=== PATIENT | male | born 1975 | race Two or more races ===

== ENCOUNTER → 2016-06-03 | Outpatient (CLI) | payer BC, OTHER | LOC: RAD 09:20 | PROVIDERS: ATTEND Family Medicine | DX: Z00.01 Encounter for general adult medical examination with abnormal findings (principal); R94.31 Abnormal electrocardiogram [ECG] [EKG] | CPT/HCPCS: 71020-TC ==

== ENCOUNTER 2016-06-06 08:49 | Outpatient (CLI) | payer BC, OTHER ==
[2016-06-06 10:07] LABS: BASOPHILS % (AUTO) 0.3 % (0.0-2.0); DIFF TOTAL % 100 %; EOSINOPHILS # (AUTO) 0.1 /CMM (0.0-0.7); EOSINOPHILS % (AUTO) 1.6 % (0.0-6.0); HEMATOCRIT 45 % (39-51); HEMOGLOBIN 13.9 g/dL (13.5-17.5); LYMPHOCYTES # (AUTO) 2.4 /CMM (0.8-4.8); LYMPHOCYTES % (AUTO) 40.6 % (20.0-44.0); MEAN CORPUSCULAR HEMOGLOBIN 21 PG (26.0-33.0); MEAN CORPUSCULAR HGB CONC 31 g/dl (31.0-36.0); MEAN CORPUSCULAR VOLUME 67 fL (80-96); MONOCYTES # (AUTO) 0.5 /CMM (0.1-1.30); MONOCYTES % (AUTO) 8.7 % (2.0-12.0); NEUTROPHILS # (AUTO) 2.9 /CMM (1.8-8.9); NEUTROPHILS % (AUTO) 48.8 % (43.0-81.0); PLATELET COUNT (AUTO) 297 /CMM (150-450); RED BLOOD CELL COUNT(AUTO) 6.72 MIL/uL (4.5-6.0)
[2016-06-06 10:20] LABS: ALBUMIN 4.3 g/dL (3.4-5.0); BILIRUBIN,TOTAL 0.6 mg/dL (0.2-1.0); CALCIUM, SERUM 9.5 mg/dL (8.5-10.1); CREATININE 0.9 mg/dL (0.6-1.3); POTASSIUM 3.9 mmol/L (3.5-5.1); TOTAL PROTEIN, SERUM 7.5 g/dL (6.4-8.2)
[2016-06-06 10:26] LABS: THYROID STIMULATING HORMONE 0.645 uIU/mL (0.358-3.74)
[2016-06-06 10:27] LABS: ANISOCYTOSIS 2+; EOSINOPHILS % (MANUAL) 2 % (0-4); LYMPHOCYTES % (MANUAL) 49 % (16-48); MICROCYTOSIS 2+; PLATELET ESTIMATE ADEQUATE
[2016-06-06 10:28] LABS: HYPOCHROMASIA 2+
== END 2016-06-06 23:59 | disposition home or self-care (01) ==
LOC: CARD 08:49
PROVIDERS: ATTEND Family Medicine
DX: Z00.01 Encounter for general adult medical examination with abnormal findings (principal); R94.31 Abnormal electrocardiogram [ECG] [EKG]; I34.0 Nonrheumatic mitral (valve) insufficiency
CPT/HCPCS: 36415; 80053-TC; 80061-TC; 84436-TC; 84443-TC; 85025-TC; 93307-TC

== ENCOUNTER 2016-06-20 08:28 | Outpatient (CLI) | payer BC, OTHER | END 2016-06-20 23:59 | disposition home or self-care (01) | LOC: LAB 08:28 | PROVIDERS: ATTEND Family Medicine | DX: H53.8 Other visual disturbances (principal) | CPT/HCPCS: 36415; 84146 ==

== ENCOUNTER → 2017-06-22 | Outpatient (CLI) | payer BC, OTHER ==
[2017-06-22 09:47] LABS: ALBUMIN 4.4 g/dL (3.4-5.0); APPEARANCE,URINE CLEAR (CLEAR); BILIRUBIN,TOTAL 0.5 mg/dL (0.2-1.0); BILIRUBIN,URINE NEGATIVE (NEGATIVE); BLOOD, URINE TRACE Ery/uL (NEGATIVE); COLOR,URINE YELLOW (YELLOW); KETONES,URINE NEGATIVE (NEGATIVE); LEUKOCYTE ESTERASE ,URINE NEGATIVE (NEGATIVE); NITRITE, URINE NEGATIVE (NEGATIVE); PH,URINE 5.5 (5.0-8.0); POTASSIUM 4.1 mmol/L (3.5-5.1); PROTEIN,URINE NEGATIVE (NEGATIVE); TOTAL PROTEIN, SERUM 8.2 g/dL (6.4-8.2); UGLUCOSE NEGATIVE (NEGATIVE); UROBILINOGEN,URINE 0.2 EU/dL (0.2)
[2017-06-22 09:50] LABS: RBC,URINE 0-2 /HPF (0-2); WBC,URINE NONE SEEN /HPF (0-3)
[2017-06-22 09:51] LABS: BACTERIA,URINE None seen /HPF (None Seen); SQUAMOUS EPITHELIAL CELL,UR Few /HPF (None Seen)
[2017-06-22 09:53] LABS: BASOPHILS % (AUTO) 0.6 % (0.0-2.0); EOSINOPHILS # (AUTO) 0.1 /CMM (0.0-0.7); EOSINOPHILS % (AUTO) 1.1 % (0.0-6.0); HEMATOCRIT 42 % (39-51); HEMOGLOBIN 13.5 g/dL (13.5-17.5); LYMPHOCYTES # (AUTO) 1.9 /CMM (0.8-4.8); LYMPHOCYTES % (AUTO) 32.6 % (20.0-44.0); MEAN CORPUSCULAR HEMOGLOBIN 21 PG (26.0-33.0); MEAN CORPUSCULAR HGB CONC 32 g/dl (31.0-36.0); MEAN CORPUSCULAR VOLUME 67 fL (80-96); MONOCYTES # (AUTO) 0.5 /CMM (0.1-1.30); MONOCYTES % (AUTO) 7.8 % (2.0-12.0); NEUTROPHILS # (AUTO) 3.5 /CMM (1.8-8.9); NEUTROPHILS % (AUTO) 57.9 % (43.0-81.0); PLATELET COUNT (AUTO) 280 /CMM (150-450); RDW COEFFICIENT OF VARIATION 15.3 (11.5-15.0); RED BLOOD CELL COUNT(AUTO) 6.28 MIL/uL (4.5-6.0)
[2017-06-22 09:55] LABS: THYROID STIMULATING HORMONE 0.761 uIU/mL (0.358-3.74)
[2017-06-22 10:11] LABS: EOSINOPHILS % (MANUAL) 2 % (0-4); LYMPHOCYTES % (MANUAL) 49 % (16-48); MONOCYTES % (MANUAL) 3 % (0-11.0); NEUTROPHILS % (MANUAL) 46 (42-76)
[2017-06-23 08:09] LABS: *TESTOSTERONE, SERUM 452 ng/dL (264-916)
[2017-06-24 20:10] LABS: *TESTOSTERONE, FREE (DIRECT) 13.4 pg/mL (6.8-21.5)
== END | disposition home or self-care (01) ==
LOC: LAB 08:49
PROVIDERS: ATTEND Family Medicine
DX: E55.9 Vitamin D deficiency, unspecified (principal); I10 Essential (primary) hypertension; R73.9 Hyperglycemia, unspecified
CPT/HCPCS: 36415; 80053-TC; 80061-TC; 81000-TC; 82306; 84402; 84403; 84439-TC; 84443-TC; 85025-TC

== ENCOUNTER 2017-08-22 09:15 | Outpatient (CLI) | payer BC, OTHER ==
[2017-08-22 09:51] LABS: ALBUMIN 4.4 g/dL (3.4-5.0); BILIRUBIN,DIRECT 0.2 mg/dL (0.0-0.2); BILIRUBIN,TOTAL 0.4 mg/dL (0.2-1.0); TOTAL PROTEIN, SERUM 8.1 g/dL (6.4-8.2)
== END 2017-08-22 23:59 | disposition home or self-care (01) ==
LOC: LAB 09:15
PROVIDERS: ATTEND Family Medicine
DX: R94.5 Abnormal results of liver function studies (principal)
CPT/HCPCS: 36415; 80076-TC; 86706; 86709-TC; 87340

== ENCOUNTER 2017-08-25 08:53 | Outpatient (CLI) | payer BC | END 2017-08-25 23:59 | disposition home or self-care (01) | LOC: US 08:53 | PROVIDERS: ATTEND Family Medicine | DX: R94.5 Abnormal results of liver function studies (principal) | CPT/HCPCS: 76700-TC ==

== ENCOUNTER 2018-05-14 10:30 | Outpatient (CLI) | payer BC ==
[2018-05-14 11:22] LABS: CALCIUM, SERUM 9.4 mg/dL (8.5-10.1); POTASSIUM 4.6 mmol/L (3.5-5.1)
== END 2018-05-14 23:59 | disposition home or self-care (01) ==
LOC: LAB 10:30
PROVIDERS: ATTEND Family Medicine
DX: R73.9 Hyperglycemia, unspecified (principal); E55.9 Vitamin D deficiency, unspecified; I10 Essential (primary) hypertension
CPT/HCPCS: 36415; 80048-TC; 80061-TC; 82306

== ENCOUNTER 2018-10-21 11:02 | Emergency (ER) | payer BC, OTHER ==
[~2018-10-21] VITALS: Ht 167.6 cm; Wt 72.1 kg
--- NOTE | 2018-10-21 11:20 | NUR ---
PATIENT CAME IN C/PO HEADACHE FOR 1 WEEK NOW AND TAKES IBUPROFEN SCHEDULED WITHOUT RELIEF. PER PATIENT SAME THING HAPPENED 2 YEARS AGO. DENIES BLURRY VISION, WEAKNESS, NO HTN, NO SENSITIVITY TO LIGHT, DENIES NAUSEA.
[2018-10-21] MEDS ORDERED: METOCLOPRAMIDE HCL 10 MG/2 ML VIAL ONE (11:45)
[2018-10-21] MEDS ORDERED: diphenhydrAMINE HCL 50 MG/ML VIAL ONE (11:45)
[2018-10-21] MEDS ORDERED: KETOROLAC TROMETHAMINE 15 MG/ML VIAL ONE (11:45)
[2018-10-21] MEDS ORDERED: KETOROLAC TROMETHAMINE INJ 30 MG/ML VIAL IV ONE (12:00)
[2018-10-21] MEDS ORDERED: IV NS 0.9% 1,000 ML BAG IV ONE (12:00)
[2018-10-21] MEDS ORDERED: METOCLOPRAMIDE HCL 10 MG/2 ML VIAL IV ONE (12:00)
[2018-10-21] MEDS ORDERED: diphenhydrAMINE HCL 50 MG/ML VIAL IV ONE (12:00)
--- NOTE | 2018-10-21 12:14 | NUR ---
patient resting comfortably
[2018-10-21 13:30] VITALS: BP 128/77
--- NOTE | 2018-10-21 13:30 | NUR ---
Patient discharged to home in stable condition. Written and verbal after care instructions given. Patient verbalizes understanding of instruction.IV removed. Catheter intact and site benign. Pressure and 4x4 applied to site. No bleeding noted.
== END 2018-10-21 13:34 | disposition home or self-care (01) ==
LOC: ER 11:03
DX: R51 Headache (principal); I10 Essential (primary) hypertension; Z88.1 Allergy status to other antibiotic agents
CPT/HCPCS: 96374; 96375; 99283; J1200; J1885; J2765; J7030

== ENCOUNTER 2018-10-24 08:27 | Outpatient (CLI) | payer BC | END 2018-10-24 23:59 | disposition home or self-care (01) | LOC: CT 08:27 | PROVIDERS: ATTEND Family Medicine | DX: R51 Headache (principal) | CPT/HCPCS: 70450-TC ==

== ENCOUNTER 2019-10-06 01:03 | Emergency (ER) | payer BC, OTHER | END 2019-10-06 01:31 | disposition home or self-care (01) | LOC: ER 01:05 | DX: Z03.818 Encounter for observation for suspected exposure to other biological agents ruled out (principal) | CPT/HCPCS: 99283; U0003 ==

== ENCOUNTER 2019-11-01 03:45 | Emergency (ER) | payer OTHER ==
[~2019-11-01] VITALS: Ht 170.2 cm; Wt 72.6 kg
[2019-11-01 03:48] VITALS: BP 127/89
== END 2019-11-01 04:49 | disposition home or self-care (01) ==
LOC: ER 03:45
DX: Z03.818 Encounter for observation for suspected exposure to other biological agents ruled out (principal); Z82.49 Family history of ischemic heart disease and other diseases of the circulatory system
CPT/HCPCS: 99283; C9803; U0003

== ENCOUNTER 2019-11-08 01:42 | Emergency (ER) | payer OTHER ==
[~2019-11-08] VITALS: Ht 170.2 cm; Wt 72.6 kg
[2019-11-08 01:42] VITALS: BP 137/89
--- NOTE | 2019-11-08 02:12 | NUR ---
COVID TEST SENT TO LAB
== END 2019-11-08 02:18 | disposition home or self-care (01) ==
LOC: ER 01:42
DX: Z11.59 Encounter for screening for other viral diseases (principal); I10 Essential (primary) hypertension
CPT/HCPCS: 99283; C9803; U0003

== ENCOUNTER 2019-11-22 02:56 | Emergency (ER) | payer OTHER ==
[~2019-11-22] VITALS: Ht 170.2 cm; Wt 72.6 kg
[2019-11-22 02:56] VITALS: BP 122/75
--- NOTE | 2019-11-22 03:12 | NUR ---
COVID SWAB SENT TO LAB
== END 2019-11-22 03:45 | disposition home or self-care (01) ==
LOC: ER 02:56
DX: Z03.818 Encounter for observation for suspected exposure to other biological agents ruled out (principal)
CPT/HCPCS: 99283; C9803; U0003

== ENCOUNTER 2019-11-29 04:03 | Emergency (ER) | payer OTHER ==
[~2019-11-29] VITALS: Ht 170.2 cm; Wt 72.6 kg
[2019-11-29 04:06] VITALS: BP 126/64
== END 2019-11-29 04:55 | disposition home or self-care (01) ==
LOC: ER 04:04
DX: Z03.818 Encounter for observation for suspected exposure to other biological agents ruled out (principal); I10 Essential (primary) hypertension
CPT/HCPCS: 99283; C9803; U0003

== ENCOUNTER 2019-12-06 03:25 | Emergency (ER) | payer OTHER ==
[~2019-12-06] VITALS: Ht 170.2 cm; Wt 72.6 kg
[2019-12-06 03:26] VITALS: BP 132/64
--- NOTE | 2019-12-06 03:44 | NUR ---
COVID SWAB SENT TO LAB
--- NOTE | 2019-12-06 21:46 | NUR ---
LAB CALLED REGARDING COVID NEGATIVE RESULT.
== END 2019-12-06 03:46 | disposition home or self-care (01) ==
LOC: ER 03:26
DX: Z11.59 Encounter for screening for other viral diseases (principal); I10 Essential (primary) hypertension
CPT/HCPCS: 99283; C9803; U0003

== ENCOUNTER 2019-12-13 03:34 | Emergency (ER) | payer OTHER ==
[~2019-12-13] VITALS: Ht 170.2 cm; Wt 72.6 kg
[2019-12-13 03:35] VITALS: BP 123/75
--- NOTE | 2019-12-13 03:52 | NUR ---
COVID SWAB SENT TO LAB
== END 2019-12-13 03:53 | disposition home or self-care (01) ==
LOC: ER 03:34
DX: Z03.818 Encounter for observation for suspected exposure to other biological agents ruled out (principal); I10 Essential (primary) hypertension; Z82.49 Family history of ischemic heart disease and other diseases of the circulatory system; Z88.1 Allergy status to other antibiotic agents; Z88.0 Allergy status to penicillin
CPT/HCPCS: 99283; C9803; U0003

== ENCOUNTER 2019-12-20 03:40 | Emergency (ER) | payer OTHER ==
[~2019-12-20] VITALS: Ht 170.2 cm; Wt 72.6 kg
[2019-12-20 03:41] VITALS: BP 131/75
== END 2019-12-20 04:16 | disposition home or self-care (01) ==
LOC: ER 03:42
DX: Z20.828 Contact with and (suspected) exposure to other viral communicable diseases (principal); I10 Essential (primary) hypertension; Z82.49 Family history of ischemic heart disease and other diseases of the circulatory system
CPT/HCPCS: 99283; C9803; U0003

== ENCOUNTER 2020-01-03 02:21 | Emergency (ER) | payer OTHER ==
[~2020-01-03] VITALS: Ht 170.2 cm; Wt 72.6 kg
[2020-01-03 02:24] VITALS: BP 132/62
--- NOTE | 2020-01-03 02:40 | NUR ---
COVID SWAB DONE AND SENT TO LAB
--- NOTE | 2020-01-03 02:46 | NUR ---
Patient discharged to home in stable condition. Written and verbal after care instructions given. Patient verbalizes understanding of instruction.
== END 2020-01-03 02:46 | disposition home or self-care (01) ==
LOC: ER 02:23
DX: Z20.828 Contact with and (suspected) exposure to other viral communicable diseases (principal); I10 Essential (primary) hypertension; Z88.1 Allergy status to other antibiotic agents; Z88.0 Allergy status to penicillin
CPT/HCPCS: 99283; C9803; U0003

== ENCOUNTER 2020-01-10 01:58 | Emergency (ER) | payer OTHER ==
[~2020-01-10] VITALS: Ht 170.2 cm; Wt 72.6 kg
[2020-01-10 02:03] VITALS: BP 131/80
== END 2020-01-10 02:14 | disposition home or self-care (01) ==
LOC: ER 01:59
DX: Z20.828 Contact with and (suspected) exposure to other viral communicable diseases (principal); I10 Essential (primary) hypertension; Z88.1 Allergy status to other antibiotic agents; Z82.49 Family history of ischemic heart disease and other diseases of the circulatory system
CPT/HCPCS: 99283; C9803; U0003

== ENCOUNTER 2020-01-24 02:42 | Emergency (ER) | payer OTHER ==
[~2020-01-24] VITALS: Ht 170.2 cm; Wt 72.6 kg
[2020-01-24 02:42] VITALS: BP 121/75
== END 2020-01-24 02:56 | disposition home or self-care (01) ==
LOC: ER 02:43
DX: Z20.828 Contact with and (suspected) exposure to other viral communicable diseases (principal); Z88.1 Allergy status to other antibiotic agents; Z88.0 Allergy status to penicillin
CPT/HCPCS: 99283; C9803; U0003

== ENCOUNTER 2020-01-27 08:10 | Outpatient (CLI) | payer BC ==
[2020-01-27 10:03] LABS: BASOPHILS % (AUTO) 0.5 % (0.0-2.0); EOSINOPHILS % (AUTO) 0.9 % (0.0-6.0); HEMATOCRIT 41 % (39-51); HEMOGLOBIN 12.8 g/dL (13.5-17.5); LYMPHOCYTES # (AUTO) 1.4 /CMM (0.8-4.8); MEAN CORPUSCULAR HGB CONC 31 g/dl (31.0-36.0); MEAN CORPUSCULAR VOLUME 69 fL (80-96); MONOCYTES # (AUTO) 0.3 /CMM (0.1-1.30); MONOCYTES % (AUTO) 7.5 % (2.0-12.0); NEUTROPHILS # (AUTO) 2.8 /CMM (1.8-8.9); NEUTROPHILS % (AUTO) 60.1 % (43.0-81.0); PLATELET COUNT (AUTO) 265 /CMM (150-450); WHITE BLOOD COUNT (AUTO) 4.6 K/uL (4.3-11.0)
[2020-01-27 10:34] LABS: APPEARANCE,URINE CLEAR (CLEAR); BILIRUBIN,URINE NEGATIVE (NEGATIVE); BLOOD, URINE NEGATIVE Ery/uL (NEGATIVE); COLOR,URINE YELLOW (YELLOW); KETONES,URINE NEGATIVE (NEGATIVE); LEUKOCYTE ESTERASE ,URINE NEGATIVE (NEGATIVE); NITRITE, URINE NEGATIVE (NEGATIVE); PH,URINE 5.5 (5.0-8.0); PROTEIN,URINE NEGATIVE (NEGATIVE); UGLUCOSE NEGATIVE (NEGATIVE); UROBILINOGEN,URINE 0.2 EU/dL (0.2)
[2020-01-27 10:35] LABS: ALBUMIN 4.2 g/dL (3.4-5.0); BILIRUBIN,TOTAL 0.5 mg/dL (0.2-1.0); CALCIUM, SERUM 9.3 mg/dL (8.5-10.1); CREATININE 0.9 mg/dL (0.6-1.3); POTASSIUM 3.9 mmol/L (3.5-5.1); TOTAL PROTEIN, SERUM 7.6 g/dL (6.4-8.2)
[2020-01-27 12:59] LABS: THYROID STIMULATING HORMONE 0.562 uIU/mL (0.358-3.74)
== END 2020-01-27 23:59 | disposition home or self-care (01) ==
LOC: LAB 08:10
PROVIDERS: ATTEND Family Medicine
DX: I10 Essential (primary) hypertension (principal); E55.9 Vitamin D deficiency, unspecified; E78.5 Hyperlipidemia, unspecified; Z79.899 Other long term (current) drug therapy
CPT/HCPCS: 36415; 80053-TC; 80061-TC; 81000-TC; 84439-TC; 84443-TC; 85025-TC

== ENCOUNTER 2020-01-31 02:00 | Emergency (ER) | payer BC, OTHER ==
[~2020-01-31] VITALS: Ht 167.6 cm; Wt 68.0 kg
[2020-01-31 02:02] VITALS: BP 127/76
--- NOTE | 2020-01-31 02:13 | NUR ---
COVID SWAB SENT TO LAB
== END 2020-01-31 02:16 | disposition home or self-care (01) ==
LOC: ER 02:00
DX: Z20.828 Contact with and (suspected) exposure to other viral communicable diseases (principal); Z82.49 Family history of ischemic heart disease and other diseases of the circulatory system; Z88.1 Allergy status to other antibiotic agents; Z88.0 Allergy status to penicillin
CPT/HCPCS: 99283; C9803; U0003

== ENCOUNTER 2020-02-07 01:06 | Emergency (ER) | payer OTHER ==
[~2020-02-07] VITALS: Ht 167.6 cm; Wt 68.0 kg
[2020-02-07 01:08] VITALS: BP 137/62
== END 2020-02-07 02:00 | disposition home or self-care (01) ==
LOC: ER 01:56
DX: Z20.828 Contact with and (suspected) exposure to other viral communicable diseases (principal); I10 Essential (primary) hypertension; Z88.0 Allergy status to penicillin
CPT/HCPCS: 99283; C9803; U0003

== ENCOUNTER 2020-02-13 02:05 | Emergency (ER) | payer OTHER ==
[~2020-02-13] VITALS: Ht 167.6 cm; Wt 68.0 kg
[2020-02-13 02:07] VITALS: BP 132/61
--- NOTE | 2020-02-13 02:19 | NUR ---
UNABLE TO DEPART DUE TO [employer] APPLICATION ERROR.
== END 2020-02-13 07:59 | disposition home or self-care (01) ==
LOC: ER 02:05
DX: Z20.828 Contact with and (suspected) exposure to other viral communicable diseases (principal)
CPT/HCPCS: 99283; C9803; U0003

== ENCOUNTER 2020-02-21 01:33 | Emergency (ER) | payer OTHER ==
[~2020-02-21] VITALS: Ht 170.2 cm; Wt 73.5 kg
[2020-02-21 01:45] VITALS: BP 142/77
== END 2020-02-21 01:54 | disposition home or self-care (01) ==
LOC: ER 01:38
DX: Z20.828 Contact with and (suspected) exposure to other viral communicable diseases (principal); I10 Essential (primary) hypertension; Z88.1 Allergy status to other antibiotic agents; Z88.0 Allergy status to penicillin; Z82.49 Family history of ischemic heart disease and other diseases of the circulatory system
CPT/HCPCS: 99283; C9803; U0003

== ENCOUNTER 2020-02-28 02:54 | Emergency (ER) | payer OTHER ==
[~2020-02-28] VITALS: Ht 170.2 cm; Wt 73.5 kg
[2020-02-28 02:56] VITALS: BP 62/18
== END 2020-02-28 03:10 | disposition home or self-care (01) ==
LOC: ER 02:54
DX: Z20.828 Contact with and (suspected) exposure to other viral communicable diseases (principal); I10 Essential (primary) hypertension; Z88.1 Allergy status to other antibiotic agents; Z88.0 Allergy status to penicillin; Z82.49 Family history of ischemic heart disease and other diseases of the circulatory system
CPT/HCPCS: 99283; C9803; U0003

== ENCOUNTER 2020-03-06 07:57 | Outpatient (CLI) | payer BC ==
[2020-03-06 08:53] LABS: BASOPHILS % (AUTO) 0.4 % (0.0-2.0); EOSINOPHILS % (AUTO) 0.7 % (0.0-6.0); HEMATOCRIT 42 % (39-51); HEMOGLOBIN 13.1 g/dL (13.5-17.5); LYMPHOCYTES # (AUTO) 1.4 /CMM (0.8-4.8); LYMPHOCYTES % (AUTO) 29.7 % (20.0-44.0); MEAN CORPUSCULAR HGB CONC 31 g/dl (31.0-36.0); MEAN CORPUSCULAR VOLUME 69 fL (80-96); MONOCYTES # (AUTO) 0.3 /CMM (0.1-1.30); NEUTROPHILS # (AUTO) 2.8 /CMM (1.8-8.9); NEUTROPHILS % (AUTO) 62.2 % (43.0-81.0); PLATELET COUNT (AUTO) 271 /CMM (150-450); RED BLOOD CELL COUNT(AUTO) 6.06 MIL/uL (4.5-6.0); WHITE BLOOD COUNT (AUTO) 4.6 K/uL (4.3-11.0)
[2020-03-06 09:06] LABS: TOTAL IRON BINDING CAPACITY 348 ug/dl (250-450)
[2020-03-06 09:25] LABS: FERRITIN 267 ng/mL (8-388); IRON, SERUM 60 ug/dl (50-175)
[2020-03-07 08:06] LABS: FOLIC ACID 13.2 ng/mL (>3.0)
[2020-03-10 11:07] LABS: *HGBFRC HEMOGLOBIN A2 1.9 % (1.8-3.2)
== END 2020-03-06 23:59 | disposition home or self-care (01) ==
LOC: LAB 07:57
PROVIDERS: ATTEND Family Medicine
DX: I10 Essential (primary) hypertension (principal); D64.9 Anemia, unspecified
CPT/HCPCS: 36415; 82728-TC; 83021; 83540-TC; 83550-TC; 85025-TC; 85660

== ENCOUNTER 2020-03-07 00:41 | Emergency (ER) | payer BC, OTHER ==
[~2020-03-07] VITALS: Ht 170.2 cm; Wt 73.5 kg
[2020-03-07 00:41] VITALS: BP 121/75
== END 2020-03-07 00:56 | disposition home or self-care (01) ==
LOC: ER 00:41
DX: Z20.828 Contact with and (suspected) exposure to other viral communicable diseases (principal); I10 Essential (primary) hypertension; Z88.1 Allergy status to other antibiotic agents; Z88.0 Allergy status to penicillin
CPT/HCPCS: 99283; C9803; U0003

== ENCOUNTER 2020-03-13 03:15 | Emergency (ER) | payer OTHER ==
[~2020-03-13] VITALS: Ht 170.2 cm; Wt 73.5 kg
[2020-03-13 03:16] VITALS: BP 132/62
== END 2020-03-13 03:33 | disposition home or self-care (01) ==
LOC: ER 03:17
DX: Z20.828 Contact with and (suspected) exposure to other viral communicable diseases (principal)
CPT/HCPCS: 99283; U0003; C9803

== ENCOUNTER 2020-03-20 01:41 | Emergency (ER) | payer OTHER ==
[~2020-03-20] VITALS: Ht 175.3 cm; Wt 76.2 kg
[2020-03-20 01:51] VITALS: BP 128/68
--- NOTE | 2020-03-20 02:06 | NUR ---
Patient discharged to home in stable condition. Written and verbal after care instructions given. Patient verbalizes understanding of instruction.
== END 2020-03-20 02:08 | disposition home or self-care (01) ==
LOC: ER 01:41
DX: Z20.828 Contact with and (suspected) exposure to other viral communicable diseases (principal); I10 Essential (primary) hypertension; Z88.1 Allergy status to other antibiotic agents; Z82.49 Family history of ischemic heart disease and other diseases of the circulatory system
CPT/HCPCS: 99283; C9803; U0003

== ENCOUNTER 2020-03-27 02:09 | Emergency (ER) | payer OTHER ==
[~2020-03-27] VITALS: Ht 175.3 cm; Wt 76.2 kg
[2020-03-27 02:11] VITALS: BP 130/75
== END 2020-03-27 02:52 | disposition home or self-care (01) ==
LOC: ER 02:11
DX: Z20.828 Contact with and (suspected) exposure to other viral communicable diseases (principal); I10 Essential (primary) hypertension; Z88.1 Allergy status to other antibiotic agents; Z88.0 Allergy status to penicillin
CPT/HCPCS: 99283; C9803; U0003

== ENCOUNTER 2020-04-10 02:11 | Emergency (ER) | payer OTHER ==
[~2020-04-10] VITALS: Ht 167.6 cm; Wt 74.4 kg
[2020-04-10 02:21] VITALS: BP 144/82
== END 2020-04-10 03:59 | disposition home or self-care (01) ==
LOC: ER 02:11
DX: Z20.828 Contact with and (suspected) exposure to other viral communicable diseases (principal); I10 Essential (primary) hypertension; Z88.1 Allergy status to other antibiotic agents; Z88.0 Allergy status to penicillin; Z82.49 Family history of ischemic heart disease and other diseases of the circulatory system
CPT/HCPCS: 99283; C9803; U0003

== ENCOUNTER 2020-04-17 02:11 | Emergency (ER) | payer OTHER ==
[~2020-04-17] VITALS: Ht 167.6 cm; Wt 74.4 kg
[2020-04-17 02:11] VITALS: BP 132/64
== END 2020-04-17 02:47 | disposition home or self-care (01) ==
LOC: ER 02:11
DX: Z20.828 Contact with and (suspected) exposure to other viral communicable diseases (principal); I10 Essential (primary) hypertension; Z88.1 Allergy status to other antibiotic agents; Z88.0 Allergy status to penicillin; Z82.49 Family history of ischemic heart disease and other diseases of the circulatory system
CPT/HCPCS: 99283; C9803; U0003

== ENCOUNTER 2020-04-27 01:21 | Emergency (ER) | payer OTHER ==
[~2020-04-27] VITALS: Ht 167.6 cm; Wt 74.4 kg
[2020-04-27 01:22] VITALS: BP 133/64
--- NOTE | 2020-04-27 01:45 | NUR ---
COVID SWAB SAMPLE COLLECTED AND SENT TO THE LAB.
== END 2020-04-27 01:53 | disposition home or self-care (01) ==
LOC: ER 01:25
DX: Z20.828 Contact with and (suspected) exposure to other viral communicable diseases (principal); I10 Essential (primary) hypertension; Z88.1 Allergy status to other antibiotic agents; Z88.0 Allergy status to penicillin
CPT/HCPCS: 99283; C9803; U0003

== ENCOUNTER 2020-05-01 00:15 | Emergency (ER) | payer OTHER ==
[~2020-05-01] VITALS: Ht 167.6 cm; Wt 74.4 kg
[2020-05-01 00:18] VITALS: BP 141/75
== END 2020-05-01 00:49 | disposition home or self-care (01) ==
LOC: ER 00:16
DX: Z20.828 Contact with and (suspected) exposure to other viral communicable diseases (principal); I10 Essential (primary) hypertension; Z88.1 Allergy status to other antibiotic agents; Z88.0 Allergy status to penicillin; Z82.49 Family history of ischemic heart disease and other diseases of the circulatory system
CPT/HCPCS: 99283; C9803; U0003

== ENCOUNTER 2020-05-04 01:35 | Emergency (ER) | payer OTHER ==
[~2020-05-04] VITALS: Ht 167.6 cm; Wt 74.4 kg
[2020-05-04 01:43] VITALS: BP 119/75
== END 2020-05-04 01:57 | disposition home or self-care (01) ==
LOC: ER 01:47
DX: Z20.828 Contact with and (suspected) exposure to other viral communicable diseases (principal); I10 Essential (primary) hypertension; Z88.1 Allergy status to other antibiotic agents; Z88.0 Allergy status to penicillin; Z82.49 Family history of ischemic heart disease and other diseases of the circulatory system
CPT/HCPCS: 99283; C9803; U0003

== ENCOUNTER 2020-05-08 01:51 | Emergency (ER) | payer OTHER ==
[~2020-05-08] VITALS: Ht 167.6 cm; Wt 74.8 kg
[2020-05-08 01:55] VITALS: BP 131/77
--- NOTE | 2020-05-08 02:01 | NUR ---
COVID TEST SAMPLE COLLECTED AND SENT TO THE LAB.
== END 2020-05-08 02:02 | disposition home or self-care (01) ==
LOC: ER 01:54
DX: Z20.828 Contact with and (suspected) exposure to other viral communicable diseases (principal); I10 Essential (primary) hypertension; Z88.1 Allergy status to other antibiotic agents; Z88.0 Allergy status to penicillin; Z82.49 Family history of ischemic heart disease and other diseases of the circulatory system
CPT/HCPCS: 99283; C9803; U0003

== ENCOUNTER 2020-05-11 05:23 | Emergency (ER) | payer OTHER ==
[~2020-05-11] VITALS: Ht 167.6 cm; Wt 74.4 kg
[2020-05-11 05:27] VITALS: BP 118/73
== END 2020-05-11 05:45 | disposition home or self-care (01) ==
LOC: ER 05:24
DX: Z20.828 Contact with and (suspected) exposure to other viral communicable diseases (principal); I10 Essential (primary) hypertension; Z88.1 Allergy status to other antibiotic agents; Z88.0 Allergy status to penicillin; Z82.49 Family history of ischemic heart disease and other diseases of the circulatory system
CPT/HCPCS: 99283; C9803; U0003

== ENCOUNTER 2020-05-15 01:12 | Emergency (ER) | payer OTHER ==
[~2020-05-15] VITALS: Ht 168.9 cm; Wt 72.6 kg
[2020-05-15 01:14] VITALS: BP 136/61
== END 2020-05-15 01:26 | disposition home or self-care (01) ==
LOC: ER 01:16
DX: Z20.822 Contact with and (suspected) exposure to COVID-19 (principal); I10 Essential (primary) hypertension; Z88.1 Allergy status to other antibiotic agents; Z88.0 Allergy status to penicillin; Z82.49 Family history of ischemic heart disease and other diseases of the circulatory system
CPT/HCPCS: 99283; C9803; U0003

== ENCOUNTER 2020-05-18 03:14 | Emergency (ER) | payer OTHER ==
[~2020-05-18] VITALS: Ht 168.9 cm; Wt 72.6 kg
[2020-05-18 03:23] VITALS: BP 145/82
== END 2020-05-18 03:41 | disposition home or self-care (01) ==
LOC: ER 03:22
DX: Z20.822 Contact with and (suspected) exposure to COVID-19 (principal); I10 Essential (primary) hypertension; Z88.1 Allergy status to other antibiotic agents; Z88.0 Allergy status to penicillin; Z82.49 Family history of ischemic heart disease and other diseases of the circulatory system
CPT/HCPCS: 99283; C9803; U0003

== ENCOUNTER 2020-05-24 01:56 | Emergency (ER) | payer OTHER ==
[~2020-05-24] VITALS: Ht 168.9 cm; Wt 72.6 kg
[2020-05-24 02:02] VITALS: BP 124/67
== END 2020-05-24 02:19 | disposition home or self-care (01) ==
LOC: ER 01:58
DX: Z20.822 Contact with and (suspected) exposure to COVID-19 (principal); I10 Essential (primary) hypertension; Z88.1 Allergy status to other antibiotic agents; Z88.0 Allergy status to penicillin
CPT/HCPCS: 99283; C9803; U0003

== ENCOUNTER 2020-05-29 03:35 | Emergency (ER) | payer OTHER ==
[~2020-05-29] VITALS: Ht 168.9 cm; Wt 72.6 kg
[2020-05-29 03:36] VITALS: BP 123/61
== END 2020-05-29 03:47 | disposition home or self-care (01) ==
LOC: ER 03:38
DX: Z20.822 Contact with and (suspected) exposure to COVID-19 (principal); I10 Essential (primary) hypertension; Z88.1 Allergy status to other antibiotic agents; Z88.0 Allergy status to penicillin; Z82.49 Family history of ischemic heart disease and other diseases of the circulatory system
CPT/HCPCS: 99283; C9803; U0003

== ENCOUNTER 2020-06-01 01:06 | Emergency (ER) | payer OTHER ==
[~2020-06-01] VITALS: Ht 167.6 cm; Wt 72.6 kg
[2020-06-01 01:07] VITALS: BP 132/66
== END 2020-06-01 01:51 | disposition home or self-care (01) ==
LOC: ER 01:11
DX: Z20.822 Contact with and (suspected) exposure to COVID-19 (principal); I10 Essential (primary) hypertension; Z88.1 Allergy status to other antibiotic agents; Z88.0 Allergy status to penicillin
CPT/HCPCS: 99283; C9803; U0003

== ENCOUNTER 2020-06-05 01:38 | Emergency (ER) | payer OTHER ==
[~2020-06-05] VITALS: Ht 167.6 cm; Wt 73.0 kg
[2020-06-05 01:40] VITALS: BP 121/87
== END 2020-06-05 01:58 | disposition home or self-care (01) ==
LOC: ER 01:43
DX: Z20.822 Contact with and (suspected) exposure to COVID-19 (principal); I10 Essential (primary) hypertension; Z88.1 Allergy status to other antibiotic agents; Z88.0 Allergy status to penicillin; Z82.49 Family history of ischemic heart disease and other diseases of the circulatory system
CPT/HCPCS: 99283; C9803; U0003

== ENCOUNTER 2020-06-08 02:35 | Emergency (ER) | payer OTHER ==
[~2020-06-08] VITALS: Ht 167.6 cm; Wt 73.0 kg
[2020-06-08 02:35] VITALS: BP 119/64
== END 2020-06-08 03:38 | disposition home or self-care (01) ==
LOC: ER 02:37
DX: Z20.822 Contact with and (suspected) exposure to COVID-19 (principal); I10 Essential (primary) hypertension; Z88.1 Allergy status to other antibiotic agents; Z88.0 Allergy status to penicillin; Z82.49 Family history of ischemic heart disease and other diseases of the circulatory system
CPT/HCPCS: 99283; C9803; U0003

== ENCOUNTER 2020-06-12 00:20 | Emergency (ER) | payer OTHER ==
[~2020-06-12] VITALS: Ht 167.6 cm; Wt 73.0 kg
[2020-06-12 00:31] VITALS: BP 138/76
== END 2020-06-12 01:13 | disposition home or self-care (01) ==
LOC: ER 00:20
DX: Z20.822 Contact with and (suspected) exposure to COVID-19 (principal)
CPT/HCPCS: 99283; C9803; U0003

== ENCOUNTER 2020-06-15 02:37 | Emergency (ER) | payer OTHER ==
[~2020-06-15] VITALS: Ht 167.6 cm; Wt 72.6 kg
[2020-06-15 02:38] VITALS: BP 111/68
== END 2020-06-15 02:55 | disposition home or self-care (01) ==
LOC: ER 02:37
DX: Z20.822 Contact with and (suspected) exposure to COVID-19 (principal); I10 Essential (primary) hypertension; Z88.1 Allergy status to other antibiotic agents; Z88.0 Allergy status to penicillin
CPT/HCPCS: 99283; C9803; U0003

== ENCOUNTER 2020-06-19 01:21 | Emergency (ER) | payer OTHER ==
[~2020-06-19] VITALS: Ht 167.6 cm; Wt 73.5 kg
[2020-06-19 01:23] VITALS: BP 119/68
== END 2020-06-19 01:45 | disposition home or self-care (01) ==
LOC: ER 01:24
DX: Z20.822 Contact with and (suspected) exposure to COVID-19 (principal); I10 Essential (primary) hypertension; Z88.1 Allergy status to other antibiotic agents; Z88.0 Allergy status to penicillin; Z82.49 Family history of ischemic heart disease and other diseases of the circulatory system
CPT/HCPCS: 99283; C9803; U0003

== ENCOUNTER 2020-06-22 01:27 | Emergency (ER) | payer OTHER ==
[~2020-06-22] VITALS: Ht 167.6 cm; Wt 73.5 kg
[2020-06-22 01:27] VITALS: BP 118/75
== END 2020-06-22 03:15 | disposition home or self-care (01) ==
LOC: ER 01:31
DX: Z20.822 Contact with and (suspected) exposure to COVID-19 (principal)
CPT/HCPCS: 99283; C9803; U0003

== ENCOUNTER 2020-06-28 01:14 | Emergency (ER) | payer OTHER ==
[~2020-06-28] VITALS: Ht 167.6 cm; Wt 73.5 kg
[2020-06-28 01:16] VITALS: BP 119/68
== END 2020-06-28 01:46 | disposition home or self-care (01) ==
LOC: ER 01:16
DX: Z20.822 Contact with and (suspected) exposure to COVID-19 (principal); I10 Essential (primary) hypertension; Z88.1 Allergy status to other antibiotic agents; Z88.0 Allergy status to penicillin; Z82.49 Family history of ischemic heart disease and other diseases of the circulatory system
CPT/HCPCS: 99283; C9803; U0003

== ENCOUNTER 2020-07-05 01:17 | Emergency (ER) | payer OTHER ==
[~2020-07-05] VITALS: Ht 167.6 cm; Wt 73.5 kg
[2020-07-05 01:17] VITALS: BP 121/63
== END 2020-07-05 02:05 | disposition home or self-care (01) ==
LOC: ER 01:20
DX: Z13.89 Encounter for screening for other disorder (principal); Z20.822 Contact with and (suspected) exposure to COVID-19; I10 Essential (primary) hypertension; Z88.0 Allergy status to penicillin; Z88.8 Allergy status to other drugs, medicaments and biological substances
CPT/HCPCS: 99283; C9803; U0003

== ENCOUNTER 2020-07-12 01:49 | Emergency (ER) | payer OTHER ==
[~2020-07-12] VITALS: Ht 167.6 cm; Wt 73.5 kg
[2020-07-12 01:50] VITALS: BP 124/69
== END 2020-07-12 02:05 | disposition home or self-care (01) ==
LOC: ER 01:49
DX: Z20.822 Contact with and (suspected) exposure to COVID-19 (principal); I10 Essential (primary) hypertension; Z88.1 Allergy status to other antibiotic agents; Z88.0 Allergy status to penicillin; Z82.49 Family history of ischemic heart disease and other diseases of the circulatory system
CPT/HCPCS: 99283; C9803; U0003

== ENCOUNTER 2020-07-19 01:29 | Emergency (ER) | payer OTHER ==
[~2020-07-19] VITALS: Ht 170.2 cm; Wt 72.1 kg
[2020-07-19 01:31] VITALS: BP 127/79
== END 2020-07-19 01:46 | disposition home or self-care (01) ==
LOC: ER 01:34
DX: Z20.822 Contact with and (suspected) exposure to COVID-19 (principal); I10 Essential (primary) hypertension; Z88.1 Allergy status to other antibiotic agents; Z88.0 Allergy status to penicillin
CPT/HCPCS: 99283; C9803; U0003

== ENCOUNTER 2020-07-26 02:03 | Emergency (ER) | payer OTHER ==
[~2020-07-26] VITALS: Ht 170.2 cm; Wt 72.1 kg
[2020-07-26 02:08] VITALS: BP 131/80
== END 2020-07-26 02:28 | disposition home or self-care (01) ==
LOC: ER 02:05
DX: Z20.822 Contact with and (suspected) exposure to COVID-19 (principal); Z88.0 Allergy status to penicillin; Z88.1 Allergy status to other antibiotic agents; I10 Essential (primary) hypertension
CPT/HCPCS: 99283; C9803; U0003

== ENCOUNTER 2020-08-02 01:11 | Emergency (ER) | payer OTHER ==
[~2020-08-02] VITALS: Ht 170.2 cm; Wt 72.1 kg
[2020-08-02 01:13] VITALS: BP 134/80
== END 2020-08-02 01:53 | disposition home or self-care (01) ==
LOC: ER 01:12
DX: Z20.822 Contact with and (suspected) exposure to COVID-19 (principal); I10 Essential (primary) hypertension; Z88.1 Allergy status to other antibiotic agents; Z88.0 Allergy status to penicillin
CPT/HCPCS: 99283; C9803; U0003

== ENCOUNTER 2020-08-14 00:50 | Emergency (ER) | payer OTHER ==
[~2020-08-14] VITALS: Ht 167.6 cm; Wt 72.1 kg
[2020-08-14 00:51] VITALS: BP 124/71
== END 2020-08-14 01:05 | disposition home or self-care (01) ==
LOC: ER 00:53
DX: Z20.822 Contact with and (suspected) exposure to COVID-19 (principal); I10 Essential (primary) hypertension; Z82.49 Family history of ischemic heart disease and other diseases of the circulatory system
CPT/HCPCS: 99283; C9803; U0003

== ENCOUNTER 2020-08-17 02:32 | Emergency (ER) | payer OTHER ==
[~2020-08-17] VITALS: Ht 167.6 cm; Wt 72.1 kg
[2020-08-17 02:38] VITALS: BP 132/78
== END 2020-08-17 03:24 | disposition home or self-care (01) ==
LOC: ER 02:37
DX: Z20.822 Contact with and (suspected) exposure to COVID-19 (principal); I10 Essential (primary) hypertension; Z88.1 Allergy status to other antibiotic agents; Z88.0 Allergy status to penicillin
CPT/HCPCS: 99283; C9803; U0003

== ENCOUNTER 2020-08-23 01:23 | Emergency (ER) | payer OTHER ==
[~2020-08-23] VITALS: Ht 167.6 cm; Wt 72.1 kg
[2020-08-23 01:23] VITALS: BP 123/78
== END 2020-08-23 01:57 | disposition home or self-care (01) ==
LOC: ER 01:27
DX: Z20.822 Contact with and (suspected) exposure to COVID-19 (principal); I10 Essential (primary) hypertension; Z88.1 Allergy status to other antibiotic agents; Z88.0 Allergy status to penicillin
CPT/HCPCS: 99283; C9803; U0003

== ENCOUNTER 2020-08-30 01:50 | Emergency (ER) | payer OTHER ==
[~2020-08-30] VITALS: Ht 170.2 cm; Wt 72.6 kg
[2020-08-30 01:51] VITALS: BP 131/71
== END 2020-08-30 02:16 | disposition home or self-care (01) ==
LOC: ER 01:52
DX: Z20.822 Contact with and (suspected) exposure to COVID-19 (principal); I10 Essential (primary) hypertension; Z88.1 Allergy status to other antibiotic agents; Z88.0 Allergy status to penicillin; Z82.49 Family history of ischemic heart disease and other diseases of the circulatory system
CPT/HCPCS: 99283; C9803; U0003

== ENCOUNTER 2020-09-06 01:20 | Emergency (ER) | payer OTHER ==
[~2020-09-06] VITALS: Ht 170.2 cm; Wt 72.6 kg
[2020-09-06 01:23] VITALS: BP 119/75
== END 2020-09-06 01:42 | disposition home or self-care (01) ==
LOC: ER 01:23
DX: Z20.822 Contact with and (suspected) exposure to COVID-19 (principal)
CPT/HCPCS: 99283; C9803; U0003

== ENCOUNTER 2020-09-07 00:48 | Emergency (ER) | payer OTHER ==
[~2020-09-07] VITALS: Ht 170.2 cm; Wt 72.6 kg
[2020-09-07 00:48] VITALS: BP 119/74
== END 2020-09-07 02:28 | disposition home or self-care (01) ==
LOC: ER 00:54
DX: Z20.822 Contact with and (suspected) exposure to COVID-19 (principal); I10 Essential (primary) hypertension; Z88.1 Allergy status to other antibiotic agents; Z88.0 Allergy status to penicillin
CPT/HCPCS: 99283; C9803; U0003

== ENCOUNTER 2020-09-13 01:51 | Emergency (ER) | payer OTHER ==
[~2020-09-13] VITALS: Ht 170.2 cm; Wt 72.6 kg
[2020-09-13 01:51] VITALS: BP 131/70
== END 2020-09-13 02:38 | disposition home or self-care (01) ==
LOC: ER 01:53
DX: Z20.822 Contact with and (suspected) exposure to COVID-19 (principal); I10 Essential (primary) hypertension; Z88.1 Allergy status to other antibiotic agents; Z88.0 Allergy status to penicillin; Z82.49 Family history of ischemic heart disease and other diseases of the circulatory system
CPT/HCPCS: 99283; C9803; U0003

== ENCOUNTER → 2020-09-20 | Emergency (ER) | payer OTHER ==
[~2020-09-20] VITALS: Ht 170.2 cm; Wt 72.6 kg
[2020-09-20 01:24] VITALS: BP 123/65
== END | disposition home or self-care (01) ==
LOC: ER 01:26
DX: Z20.822 Contact with and (suspected) exposure to COVID-19 (principal); I10 Essential (primary) hypertension; Z88.0 Allergy status to penicillin; Z82.49 Family history of ischemic heart disease and other diseases of the circulatory system
CPT/HCPCS: 99283; C9803; U0003

== ENCOUNTER 2020-09-27 04:15 | Emergency (ER) | payer OTHER ==
[~2020-09-27] VITALS: Ht 170.2 cm; Wt 72.6 kg
[2020-09-27 04:15] VITALS: BP 123/70
== END 2020-09-27 05:05 | disposition home or self-care (01) ==
LOC: ER 04:18
DX: Z20.822 Contact with and (suspected) exposure to COVID-19 (principal)
CPT/HCPCS: 99283; C9803; U0003

== ENCOUNTER 2020-11-02 01:21 | Emergency (ER) | payer OTHER ==
[~2020-11-02] VITALS: Ht 170.2 cm; Wt 72.6 kg
[2020-11-02 01:21] VITALS: BP 121/65
== END 2020-11-02 02:11 | disposition home or self-care (01) ==
LOC: ER 01:22
DX: Z20.822 Contact with and (suspected) exposure to COVID-19 (principal); I10 Essential (primary) hypertension; Z88.1 Allergy status to other antibiotic agents; Z88.0 Allergy status to penicillin
CPT/HCPCS: 99283; C9803; U0003

== ENCOUNTER 2023-05-03 19:49 | Emergency (ER) | payer BC, OTHER ==
[~2023-05-03] VITALS: Ht 167.6 cm; Wt 79.8 kg
[2023-05-03 20:08] VITALS: TEMP 98.2
[2023-05-03 22:25] LABS: CALCIUM, SERUM 9.5 mg/dL (8.5-10.1); POTASSIUM 3.6 mmol/L (3.5-5.1)
[2023-05-03 22:58] LABS: BASOPHILS % (AUTO) 0.6 % (0.0-2.0); EOSINOPHILS # (AUTO) 0.1 K/uL (0.0-0.7); EOSINOPHILS % (AUTO) 1.7 % (0.0-6.0); HEMATOCRIT 40 % (39-51); HEMOGLOBIN 12.3 g/dL (13.5-17.5); LYMPHOCYTES # (AUTO) 2.5 K/uL (0.8-4.8); LYMPHOCYTES % (AUTO) 41.8 % (20.0-44.0); MEAN CORPUSCULAR HEMOGLOBIN 21 PG (26.0-33.0); MEAN CORPUSCULAR HGB CONC 31 g/dl (31.0-36.0); MEAN CORPUSCULAR VOLUME 67 fL (80-96); MONOCYTES # (AUTO) 0.5 K/uL (0.1-1.30); MONOCYTES % (AUTO) 8.6 % (2.0-12.0); NEUTROPHILS # (AUTO) 2.8 K/uL (1.8-8.9); NEUTROPHILS % (AUTO) 47.3 % (43.0-81.0); PLATELET COUNT (AUTO) 267 K/uL (150-450); RED BLOOD CELL COUNT(AUTO) 5.95 MIL/uL (4.5-6.0); RED CELL DISTRIBUTION WIDTH 15.3 % (11.5-15.0)
[2023-05-03 23:00] VITALS: BP 137/93; O2SAT 99
[2023-05-04 02:01] LABS: EOSINOPHILS % (MANUAL) 1 % (0-4); LYMPHOCYTES % (MANUAL) 45 % (16-48); MONOCYTES % (MANUAL) 7 % (0-11.0); NEUTROPHILS % (MANUAL) 47 (42-76)
[2023-05-04 02:02] LABS: PLATELET ESTIMATE ADEQUATE
== END 2023-05-04 04:20 | disposition left against medical advice (07) ==
LOC: ER 19:56
DX: R07.89 Other chest pain (principal); R00.2 Palpitations; I10 Essential (primary) hypertension; Z88.1 Allergy status to other antibiotic agents
CPT/HCPCS: 36415; 71045-TC; 80048-TC; 84484-TC; 85025-TC; 93307-TC